=== PATIENT | female | born 1995 | race Caucasian/White ===

== ENCOUNTER 2019-06-10 07:30 | Day surgery (SDC) | payer BC ==
[~2019-06-10] VITALS: Ht 144.8 cm; Wt 57.6 kg
[~2019-06-10 07:30] MED LIST: CEFAZOLIN SOD 1 GM in D5W 50 ML IV ONE
[2019-06-10 08:23] LABS: HCG,QUAL RESULT NEGATIVE (NEGATIVE)
[2019-06-10] MEDS ORDERED: ISOFLURANE 15 MIN GAS INH ONE (08:48)
[2019-06-10] MEDS ORDERED: PROPOFOL 200MG/ 20ML VIAL (DIPRIVAN) IV ONE (08:48)
[2019-06-10] MEDS ORDERED: DEXAMETHASONE SOD PHOSPHATE 4 MG/ML VIAL IVP ONE (08:48)
[2019-06-10] MEDS ORDERED: fentaNYL CITRATE/PF 100 MCG/2 ML AMP IVP ONE (08:48)
[2019-06-10] MEDS ORDERED: NS 1000 ML IV.SOLN IV ONE (08:48)
[2019-06-10] MEDS ORDERED: KETOROLAC TROMETHAMINE 30 MG VIAL IVP ONE (08:48)
[2019-06-10] MEDS ORDERED: LR 1,000 ML IV.SOLN IV ONE (08:48)
[2019-06-10 11:11] VITALS: BP_SYST 91
== END 2019-06-10 10:50 | disposition home or self-care (01) ==
LOC: SMU 07:30 → SDS 07:30
PROVIDERS: ATTEND Obstetrics & Gynecology
DX: T83.32XA Displacement of intrauterine contraceptive device, initial encounter (principal); Y83.8 Other surgical procedures as the cause of abnormal reaction of the patient, or of later complication, without mention of misadventure at the time of the procedure
CPT/HCPCS: 58562; 84703; 88300; 88305; J0690; J7060; J1100; J1885; J2704; J3010; J7030; J7120

== ENCOUNTER 2019-10-28 20:11 | Emergency (ER) | payer BC ==
[~2019-10-28] VITALS: Ht 147.3 cm; Wt 59.4 kg
[2019-10-28 20:11] VITALS: BP_SYST 127
--- NOTE | 2019-10-28 23:32 | NUR ---
patient called for bed placement. Patient not in waiting room.
--- NOTE | 2019-10-28 23:34 | NUR ---
patient called for bed placement. Patient not in waiting room.
--- NOTE | 2019-10-28 23:35 | NUR ---
PAtient is not in waiting room or tent. Patient left without being seen.
== END 2019-10-28 23:35 | disposition left against medical advice (07) ==
LOC: SED 20:11
DX: H92.03 Otalgia, bilateral (principal); R51 Headache; Z53.21 Procedure and treatment not carried out due to patient leaving prior to being seen by health care provider